=== PATIENT | male | born 1970 | race Hispanic/Latino ===

== ENCOUNTER 2018-02-01 20:55 | Inpatient (IN) | payer MEDICAID, OTHER ==
[~2018-02-01] VITALS: Ht 175.3 cm; Wt 102.6 kg
[2018-02-01] MEDS ORDERED: ONDANSETRON ODT 4 MG TAB ONE (21:14)
[2018-02-01 21:31] LABS: BASOPHILS % (AUTO) 0.7 % (0.0-5.0); EOSINOPHILS % (AUTO) 0.9 % (0.0-8.0); HEMATOCRIT 47.4 % (42-54); LYMPHOCYTES % (AUTO) 11.5 % (21.0-51.0); MEAN CORPUSCULAR HEMOGLOBIN 27.4 pg (27.0-33.0); MEAN CORPUSCULAR HGB CONC 33.2 g/dL (32.0-36.0); MEAN CORPUSCULAR VOLUME 82.4 fL (79-99); NEUTROPHILS % (AUTO) 78.9 % (40.0-77.0); PLATELET COUNT (AUTO) 286 K/uL (130-400); RED BLOOD CELL COUNT(AUTO) 5.75 MIL/uL (4.50-6.20); RED CELL DISTRIBUTION WIDTH 13.8 % (11.0-15.5); WHITE BLOOD COUNT (AUTO) 13.5 K/uL (4.8-10.8)
[2018-02-01 21:41] LABS: CREATININE 0.7 mg/dL (0.5-1.5); POTASSIUM 3.7 mmol/L (3.5-5.1)
[2018-02-01 21:46] LABS: ALBUMIN 3.3 g/dL (3.5-5.0); BILIRUBIN,DIRECT 0.1 mg/dL (0.0-0.3); BILIRUBIN,TOTAL 0.5 mg/dL (0.2-1.0); TOTAL PROTEIN, SERUM 7.6 g/dL (6.0-8.3)
[2018-02-01] MEDS ORDERED: SODIUM CHLORIDE 0.9% 1000ML 1,000 ML IV ONE (22:26)
[2018-02-01] MEDS ORDERED: VANCOMYCIN 1GM+NS 250ML 250 ML IV ONE (22:26)
[2018-02-01] MEDS ORDERED: KETOROLAC TROMETHAMINE 30MG/ML ONE (22:27)
[2018-02-01] MEDS ORDERED: COMPOUND IV REFRIGERATED 1 EACH IVSOLN MISC PRN (23:15)
[2018-02-02] MEDS ORDERED: ZOSYN 3.375GM+NS 50ML 50 ML IV ONE (01:26)
[2018-02-02 02:15] VITALS: BP 145/72
[2018-02-02] MEDS: SODIUM CHLORIDE 0.9% 1000ML 1,000 ML IV SCH ×2 (02:38→20:50)
[2018-02-02] MEDS: MORPHINE SULFATE 4 MG/1ML SYG IVP PRN ×3 (02:39→20:51)
[2018-02-02 03:40] LABS: MEAN CORPUSCULAR HGB CONC 34.1 g/dL (32.0-36.0); MEAN CORPUSCULAR VOLUME 82.3 fL (79-99); PLATELET COUNT (AUTO) 235 K/uL (130-400); RED CELL DISTRIBUTION WIDTH 13.9 % (11.0-15.5); WHITE BLOOD COUNT (AUTO) 11.8 K/uL (4.8-10.8)
[2018-02-02 03:53] LABS: ALBUMIN 2.6 g/dL (3.5-5.0); BILIRUBIN,TOTAL 0.6 mg/dL (0.2-1.0); CREATININE 0.6 mg/dL (0.5-1.5); POTASSIUM 3.5 mmol/L (3.5-5.1); TOTAL PROTEIN, SERUM 6.2 g/dL (6.0-8.3)
[2018-02-02] MEDS ORDERED: DEXTROSE 50%-WATER 50 ML DISP.SYRIN IV PRN ×2 (06:15)
[2018-02-02] MEDS ORDERED: GLUCAGON 1MG KIT 1 MG ML IM PRN ×2 (06:15)
[2018-02-02] MEDS: KETOROLAC TROMETHAMINE 30MG/ML IV PRN ×3 (07:02→23:48)
[2018-02-02 08:00] VITALS: BP 168/93
[2018-02-02] MEDS: INSULIN HUMULIN R 100 UNIT/ML 3ML SQ SCH ×3 (08:26→17:08)
[2018-02-02] MEDS: ZOSYN 3.375GM+NS 50ML 50 ML IV SCH ×4 (09:08→23:47)
[2018-02-02] MEDS: VANCOMYCIN 1.5 GM in SODIUM CHLORIDE 0.9% 250 ML IV SCH ×2 (09:09→20:57)
[2018-02-02 10:41] VITALS: BP 125/74
[2018-02-02 12:00] VITALS: BP 125/74
[2018-02-02 16:00] VITALS: BP 139/75
[2018-02-02 19:00] VITALS: BP 171/97
[2018-02-02 21:18] LABS: APPEARANCE,URINE Clear (CLEAR); BILIRUBIN,URINE Negative (NEGATIVE); COLOR,URINE Yellow (YELLOW); GLUCOSE, URINE (UA) >=1000 mg/dL (NEGATIVE); KETONES,URINE 15 mg/dL (NEGATIVE); LEUKOCYTE ESTERASE ,URINE Negative (NEGATIVE); NITRATE,URINE Negative (NEGATIVE); OCCULT BLOOD,URINE Negative (NEGATIVE); PH,URINE 5.5 (5.0-8.0); PROTEIN,URINE POS 2+ (NEGATIVE)
[2018-02-02 21:27] LABS: BACTERIA,URINE None Seen /HPF (None Seen); MUCUS,URINE Few LPF (None Seen); RBC,URINE None Seen /HPF (0-1); WBC,URINE None Seen /HPF (0-1)
[2018-02-03] VITALS (20 sets, daily range): BP systolic 130–187; BP diastolic 57–108
[2018-02-03] MEDS: INSULIN HUMULIN R 100 UNIT/ML 3ML SQ SCH ×5 (01:42→21:21)
[2018-02-03] MEDS: MORPHINE SULFATE 4 MG/1ML SYG IVP PRN ×2 (06:34→11:33)
[2018-02-03] MEDS: ZOSYN 3.375GM+NS 50ML 50 ML IV SCH ×2 (08:00→12:49)
[2018-02-03] MEDS ORDERED: VANCOMYCIN 2 GM in SODIUM CHLORIDE 0.9% 500ML 500 ML IV SCH (10:45)
[2018-02-03] MEDS: KETOROLAC TROMETHAMINE 30MG/ML IV PRN (11:39)
[2018-02-03] MEDS ORDERED: FENTANYL CITRATE PF 50 MCG/1 ML 2ML VIAL ONE ×2 (16:12→17:20)
[2018-02-03] MEDS ORDERED: MIDAZOLAM HCL 1 MG/ML 2ML VIAL ONE (16:12)
[2018-02-03] MEDS ORDERED: PROPOFOL 10 MG/ML 20ML VIAL IV ONE (16:12)
[2018-02-03] MEDS ORDERED: KETAMINE HCL 100 MG/ML 5ML VIAL IJ ONE (16:26)
[2018-02-03] MEDS ORDERED: HYDRALAZINE HCL 20 MG/ML VIAL ONE (17:01)
[2018-02-03] MEDS: SODIUM CHLORIDE 0.9% 1000ML 1,000 ML IV SCH ×2 (17:29→18:56)
[2018-02-03] MEDS ORDERED: MEPERIDINE-PF 50 MG/ML SYG ONE (17:31)
[2018-02-03] MEDS: VANCOMYCIN 1.5 GM in SODIUM CHLORIDE 0.9% 250 ML IV SCH (21:12)
[2018-02-03] MEDS: ACETAMINOPHEN-CODEINE 300/30MG TAB PO PRN (21:12)
[2018-02-04] VITALS (7 sets, daily range): BP systolic 135–186; BP diastolic 67–92
[2018-02-04] MEDS: ZOSYN 3.375GM+NS 50ML 50 ML IV SCH ×4 (00:01→23:13)
[2018-02-04] MEDS: VANCOMYCIN 1.5 GM in SODIUM CHLORIDE 0.9% 250 ML IV SCH ×3 (05:48→21:21)
[2018-02-04] MEDS: INSULIN HUMULIN R 100 UNIT/ML 3ML SQ SCH ×4 (07:30→20:47)
[2018-02-04] MEDS: MORPHINE SULFATE 4 MG/1ML SYG IVP PRN ×3 (09:11→19:50)
[2018-02-04] MEDS: ACETAMINOPHEN-CODEINE 300/30MG TAB PO PRN ×3 (11:35→23:13)
[2018-02-04] MEDS: SODIUM CHLORIDE 0.9% 1000ML 1,000 ML IV SCH (18:09)
[2018-02-04] MEDS ORDERED: LISI10TA7 PO (20:55)
[2018-02-04] MEDS ORDERED: METF-527 PO (20:55)
[2018-02-04] MEDS ORDERED: levimer SQ (20:55)
[2018-02-04] MEDS ORDERED: HYDRALAZINE HCL 20 MG/ML VIAL ONE (22:00)
[2018-02-05] VITALS (8 sets, daily range): BP systolic 140–175; BP diastolic 65–95
[2018-02-05] MEDS: MORPHINE SULFATE 4 MG/1ML SYG IVP PRN ×4 (01:44→23:30)
[2018-02-05] MEDS: SODIUM CHLORIDE 0.9% 1000ML 1,000 ML IV SCH ×2 (05:39→20:35)
[2018-02-05] MEDS: VANCOMYCIN 1.5 GM in SODIUM CHLORIDE 0.9% 250 ML IV SCH ×2 (05:39→13:43)
[2018-02-05] MEDS: INSULIN HUMULIN R 100 UNIT/ML 3ML SQ SCH ×4 (06:01→20:08)
[2018-02-05] MEDS: LISINOPRIL 10 MG TABLET PO SCH (10:22)
[2018-02-05] MEDS: METFORMIN HCL 500 MG TAB.SR.24H PO SCH ×2 (10:22→17:44)
[2018-02-05] MEDS: ZOSYN 3.375GM+NS 50ML 50 ML IV SCH (10:23)
[2018-02-05] MEDS: ACETAMINOPHEN-CODEINE 300/30MG TAB PO PRN (13:42)
[2018-02-05] MEDS: HYDRALAZINE HCL 20 MG/ML VIAL IV PRN (20:06)
[2018-02-05] MEDS ORDERED: INSULIN GLARGINE 100 UNITS/ML 10 ML VIAL SQ SCH (21:00)
[2018-02-05] MEDS: VANCOMYCIN 1.75 GM in SODIUM CHLORIDE 0.9% 250 ML IV SCH (22:50)
[2018-02-06 03:00] VITALS: BP 152/76
[2018-02-06] MEDS: SODIUM CHLORIDE 0.9% 1000ML 1,000 ML IV SCH ×2 (04:53→09:55)
[2018-02-06] MEDS: VANCOMYCIN 1.75 GM in SODIUM CHLORIDE 0.9% 250 ML IV SCH ×2 (04:55→16:17)
[2018-02-06] MEDS: INSULIN HUMULIN R 100 UNIT/ML 3ML SQ SCH ×2 (06:07→12:04)
[2018-02-06 08:00] VITALS: BP 160/96
[2018-02-06] MEDS: LISINOPRIL 10 MG TABLET PO SCH (10:12)
[2018-02-06] MEDS: METFORMIN HCL 500 MG TAB.SR.24H PO SCH ×2 (10:12→16:17)
[2018-02-06] MEDS: MORPHINE SULFATE 4 MG/1ML SYG IVP PRN ×2 (10:13→16:15)
[2018-02-06] MEDS: ACETAMINOPHEN-CODEINE 300/30MG TAB PO PRN (10:13)
[2018-02-06] MEDS: HYDRALAZINE HCL 20 MG/ML VIAL IV PRN (10:15)
[2018-02-06 12:00] VITALS: BP 172/93
== END 2018-02-06 18:20 | disposition home or self-care (01) | DRG 603 ==
LOC: EDH 20:55 → OBSVTOIN 20:56 → EDHIP 20:56 → 3AH 02-02 01:15
PROVIDERS: ADMIT Internal Medicine Nephrology; ATTEND Internal Medicine Nephrology
PROC: 0X9K0ZZ Drainage of Left Hand, Open Approach (ICD-10-PCS; principal; 2018-02-03 16:35)
DX: L03.114 Cellulitis of left upper limb (principal); M32.9 Systemic lupus erythematosus, unspecified; L02.512 Cutaneous abscess of left hand; E11.9 Type 2 diabetes mellitus without complications; E66.9 Obesity, unspecified; E78.5 Hyperlipidemia, unspecified; B95.8 Unspecified staphylococcus as the cause of diseases classified elsewhere; I10 Essential (primary) hypertension; Z83.3 Family history of diabetes mellitus; Z82.49 Family history of ischemic heart disease and other diseases of the circulatory system; Z80.9 Family history of malignant neoplasm, unspecified
CPT/HCPCS: 36415; 73130; 73220; 76882; 80048; 80053; 80076; 80202; 81001; 82948; 85025; 85027; 85651; 86141; 87070; 87076; 87077; 87186; 87205; A6266; J0360; J1815; J1885; J2175; J2250; J2270; J2543; J2704; J3010; J3370; J3490; J7030; J7040

== ENCOUNTER 2019-01-25 08:29 | Emergency (ER) | payer OTHER ==
[~2019-01-25 08:29] MED LIST: LISI10TA7 PO; METF-527 PO; levimer SQ
[2019-01-25] MEDS ORDERED: SULFAMETHOX-TMP DS 800/160 TAB ONE (09:30)
[2019-01-25] MEDS ORDERED: CEPHALEXIN 500 MG CAPSULE ONE (09:30)
[2019-01-25] MEDS ORDERED: HYDROCODONE/ACETAMINOPHEN 10/325 MG TAB ONE (09:31)
== END 2019-01-25 09:59 | disposition home or self-care (01) ==
LOC: EDH 08:29
DX: L03.317 Cellulitis of buttock (principal); E11.9 Type 2 diabetes mellitus without complications; I10 Essential (primary) hypertension; L93.0 Discoid lupus erythematosus; Z79.4 Long term (current) use of insulin; Z90.49 Acquired absence of other specified parts of digestive tract

== ENCOUNTER 2019-01-27 08:43 | Inpatient (IN) | payer SELFPAY ==
[~2019-01-27] VITALS: Ht 175.3 cm; Wt 88.3 kg
[2019-01-27] MEDS ORDERED: ONDANSETRON HCL 4 MG/2 ML VIAL ONE (09:19)
[2019-01-27] MEDS ORDERED: MORPHINE SULFATE 4 MG/1ML SYG ONE ×2 (09:20→12:05)
[2019-01-27 09:24] LABS: BASOPHILS % (AUTO) 0.8 % (0.0-5.0); EOSINOPHILS % (AUTO) 2.3 % (0.0-8.0); HEMATOCRIT 41.1 % (42-54); MEAN CORPUSCULAR HEMOGLOBIN 27.9 pg (27.0-33.0); MEAN CORPUSCULAR HGB CONC 33.8 g/dL (32.0-36.0); MEAN CORPUSCULAR VOLUME 82.5 fL (79-99); MONOCYTES % (AUTO) 7.5 % (3.0-13.0); NEUTROPHILS % (AUTO) 77.4 % (40.0-77.0); PLATELET COUNT (AUTO) 266 K/uL (130-400); RED BLOOD CELL COUNT(AUTO) 4.99 MIL/uL (4.50-6.20); RED CELL DISTRIBUTION WIDTH 13.2 % (11.0-15.5); WHITE BLOOD COUNT (AUTO) 11.7 K/uL (4.8-10.8)
[2019-01-27 09:37] LABS: ALBUMIN 2.3 g/dL (3.5-5.0); BILIRUBIN,TOTAL 0.4 mg/dL (0.2-1.0); CREATININE 0.7 mg/dL (0.5-1.5); POTASSIUM 3.7 mmol/L (3.5-5.1); TOTAL PROTEIN, SERUM 6.5 g/dL (6.0-8.3)
[2019-01-27] MEDS ORDERED: CLINDAMYCIN 600 MG/D5% WATER 50 ML IV ONE (10:49)
[2019-01-27] MEDS ORDERED: INSULIN HUMULIN R 100 UNIT/ML 3ML ONE (11:56)
[2019-01-27 12:24] LABS: APPEARANCE,URINE CLEAR (CLEAR); BILIRUBIN,URINE NEGATIVE (NEGATIVE); COLOR,URINE YELLOW (YELLOW); GLUCOSE, URINE (UA) >=1000 mg/dL (NEGATIVE); KETONES,URINE >=80 mg/dL (NEGATIVE); LEUKOCYTE ESTERASE ,URINE NEGATIVE (NEGATIVE); NITRATE,URINE NEGATIVE (NEGATIVE); OCCULT BLOOD,URINE NEGATIVE (NEGATIVE); PROTEIN,URINE 30 mg/dL (NEGATIVE); UROBILINOGEN,URINE 0.2 mg/dL (0.2-1.0)
[2019-01-27 12:34] LABS: BACTERIA,URINE Rare /HPF (None Seen); RBC,URINE None Seen /HPF (0-1); SQUAMOUS EPITHELIAL CELL,UR Rare /HPF (0-2); WBC,URINE None Seen /HPF (0-1)
[2019-01-27] MEDS ORDERED: INSULIN GLARGINE 100 UNITS/ML 10 ML VIAL SQ ONE (12:45)
[2019-01-27] MEDS ORDERED: ACETAMINOPHEN 325 MG TAB PO PRN ×2 (12:45)
[2019-01-27] MEDS ORDERED: ZOSYN 3.375GM+NS 50ML 50 ML IV SCH (12:45)
[2019-01-27] MEDS ORDERED: HYDROCODONE/ACETAMINOPHEN 5/325 MG TAB PO PRN (12:45)
[2019-01-27] MEDS: CLINDAMYCIN 600 MG/D5% WATER 50 ML IV SCH ×2 (12:45→20:25)
[2019-01-27] MEDS ORDERED: ONDANSETRON HCL 4 MG/2 ML VIAL IV PRN (12:45)
[2019-01-27] MEDS ORDERED: HYDRALAZINE HCL 20 MG/ML VIAL IV PRN (12:45)
[2019-01-27 14:05] VITALS: BP 133/67
[2019-01-27 16:00] VITALS: BP 141/77
[2019-01-27] MEDS ORDERED: DEXTROSE 50%-WATER 50 ML DISP.SYRIN IV PRN (16:15)
[2019-01-27] MEDS ORDERED: GLUCAGON 1MG KIT 1 MG ML IM PRN (16:15)
[2019-01-27] MEDS: INSULIN HUMULIN R 100 UNIT/ML 3ML SQ SCH ×2 (16:26→20:25)
--- NOTE | 2019-01-27 19:38 | NUR ---
ADDENDUM TO SKIN ASSESSMENT/CELLULITIS CARE CIRCUMSCRIBED ERYTHEMA,LEFT INNER BUTTOCKS WITH MARKED SWELLING AND INDURATION, APPROX. 8X5 SIZE, TENDER TO TOUCH, NO OPEN WOUND NOTED. WARM COMPRESS TO AREA,EXPLAINED RATIONALE TO PT ,VERBALIZES FULL UNDERSTANDING Addendum: 01/28/19 at 0143 by MILENA ACOSTA RN RN Amended: Links added.
[2019-01-27 19:53] VITALS: BP 129/68
[2019-01-27] MEDS: INSULIN GLARGINE 100 UNITS/ML 10 ML VIAL SQ SCH (20:24)
[2019-01-27] MEDS: FAMOTIDINE/PF 20 MG/2 ML VIAL IV SCH (20:25)
[2019-01-27] MEDS: MORPHINE SULFATE 2 MG/ML 1ML SYG IVP PRN (22:04)
[2019-01-27 23:45] VITALS: BP 142/84
[2019-01-28] MEDS: MORPHINE SULFATE 2 MG/ML 1ML SYG IVP PRN ×5 (01:18→23:30)
[2019-01-28 03:58] VITALS: BP 143/73
[2019-01-28] MEDS: CLINDAMYCIN 600 MG/D5% WATER 50 ML IV SCH ×3 (04:38→22:17)
[2019-01-28 05:35] LABS: HEMATOCRIT 39.5 % (42-54); MEAN CORPUSCULAR HEMOGLOBIN 27.2 pg (27.0-33.0); MEAN CORPUSCULAR HGB CONC 32.8 g/dL (32.0-36.0); MEAN CORPUSCULAR VOLUME 82.9 fL (79-99); PLATELET COUNT (AUTO) 300 K/uL (130-400); RED BLOOD CELL COUNT(AUTO) 4.77 MIL/uL (4.50-6.20); RED CELL DISTRIBUTION WIDTH 13.1 % (11.0-15.5)
[2019-01-28 05:45] LABS: BAND NEUTROPHILS % (MANUAL) 3 % (0-2); BASOPHILS % (MANUAL) 1 % (0-2); LYMPHOCYTES % (MANUAL) 16 % (22-44); MAN.DIFF COMMENT-IMPRESSION MANUAL DIFFERENTIAL; MONOCYTES % (MANUAL) 9 % (2-9); PLATELET MORPHOLOGY COMMENT ADEQUATE; SEGMENTED NEUTROPHILS % 71 % (40-70)
[2019-01-28 05:50] LABS: CREATININE 0.8 mg/dL (0.5-1.5)
[2019-01-28] MEDS: INSULIN HUMULIN R 100 UNIT/ML 3ML SQ SCH (06:02)
[2019-01-28] MEDS: INSULIN GLARGINE 100 UNITS/ML 10 ML VIAL SQ SCH ×2 (06:03→23:06)
[2019-01-28 07:30] VITALS: BP 136/70
[2019-01-28] MEDS ORDERED: VANCOMYCIN 1GM+NS 250ML 250 ML IV SCH (07:45)
[2019-01-28] MEDS ORDERED: VANCOMYCIN PROTOCOL PER PHARMACY IV PRN (07:45)
[2019-01-28] MEDS ORDERED: VANCOMYCIN PROTOCOL PER PHARMACY IV SCH (07:45)
[2019-01-28] MEDS ORDERED: COMPOUND IV REFRIGERATED 1 EACH IVSOLN MISC PRN (07:45)
[2019-01-28] MEDS: ENOXAPARIN SODIUM 30 MG/0.3 ML SQ SCH (08:51)
[2019-01-28] MEDS: FAMOTIDINE/PF 20 MG/2 ML VIAL IV SCH ×2 (08:51→22:18)
[2019-01-28] MEDS: VANCOMYCIN 1.25 GM in SODIUM CHLORIDE 0.9% 250 ML IV SCH ×2 (09:43→22:17)
[2019-01-28 11:00] VITALS: BP 118/56
[2019-01-28] MEDS: INSULIN LISPRO 100 UNIT/ML 3ML SQ SCH ×5 (12:09→23:06)
--- NOTE | 2019-01-28 14:32 | NUR ---
DCP CM met with pt discussed dc plans. Pt is independent, lives at home with spouse. Denies any equipments/services. Pt feels safe to go back home, still drives, spouse able to assist with transportation and needs as necessary. Pt is a selfpay, states usually goes to [facility] for pcp follow up, given [facility], [facility] assisting. DC plan to home once stable. CM to cont to follow up. Addendum: 01/28/19 at 1434 by JONI BROWNLEE LVN CM Amended: Links added.
--- NOTE | 2019-01-28 15:00 | NUR ---
As per Dr. Irvin I&D scheduled for tomorrow 01/29/19.Pt aware
[2019-01-28 15:30] VITALS: BP 134/54
[2019-01-28 19:57] VITALS: BP 155/90
[2019-01-28 23:53] VITALS: BP 158/95
[2019-01-29] VITALS (23 sets, daily range): BP systolic 102–162; BP diastolic 60–97
[2019-01-29 05:16] LABS: BASOPHILS % (AUTO) 0.5 % (0.0-5.0); EOSINOPHILS % (AUTO) 4.8 % (0.0-8.0); HEMATOCRIT 37.5 % (42-54); LYMPHOCYTES % (AUTO) 25.1 % (21.0-51.0); MEAN CORPUSCULAR HEMOGLOBIN 28.7 pg (27.0-33.0); MEAN CORPUSCULAR HGB CONC 34.5 g/dL (32.0-36.0); MEAN CORPUSCULAR VOLUME 83.2 fL (79-99); MONOCYTES % (AUTO) 9.6 % (3.0-13.0); PLATELET COUNT (AUTO) 272 K/uL (130-400); RED CELL DISTRIBUTION WIDTH 13.1 % (11.0-15.5); WHITE BLOOD COUNT (AUTO) 8.9 K/uL (4.8-10.8)
[2019-01-29 05:23] LABS: ALBUMIN 1.9 g/dL (3.5-5.0); CREATININE 0.6 mg/dL (0.5-1.5); CRP QUANTITATIVE 69.1 mg/L (0.00-9.0); MAGNESIUM 2.1 mg/dL (1.80-2.40); PHOSPHORUS 3.6 mg/dL (2.5-4.9); POTASSIUM 3.6 mmol/L (3.5-5.1)
[2019-01-29] MEDS: CLINDAMYCIN 600 MG/D5% WATER 50 ML IV SCH ×3 (05:41→21:13)
[2019-01-29] MEDS: MORPHINE SULFATE 2 MG/ML 1ML SYG IVP PRN ×4 (06:08→21:13)
[2019-01-29] MEDS: INSULIN LISPRO 100 UNIT/ML 3ML SQ SCH ×7 (06:09→22:05)
[2019-01-29 06:18] LABS: ERYTHROCYTE SEDIMENTATION RATE 65 MM/HR (0-15)
[2019-01-29] MEDS: ENOXAPARIN SODIUM 30 MG/0.3 ML SQ SCH (09:00)
[2019-01-29] MEDS: VANCOMYCIN 1.25 GM in SODIUM CHLORIDE 0.9% 250 ML IV SCH (09:27)
[2019-01-29] MEDS: FAMOTIDINE/PF 20 MG/2 ML VIAL IV SCH ×2 (09:28→21:13)
--- NOTE | 2019-01-29 09:33 | NUR ---
PT TAKEN TO OR FOR I&D TO LEFT BUTTOCK IN STABLE CONDITION
[2019-01-29] MEDS ORDERED: SODIUM CHLORIDE 0.9% 1000ML 1,000 ML IV ONE (09:35)
[2019-01-29] MEDS ORDERED: ONDANSETRON HCL 4 MG/2 ML VIAL ONE (10:46)
[2019-01-29] MEDS ORDERED: MIDAZOLAM HCL 1 MG/ML 2ML VIAL ONE (10:46)
[2019-01-29] MEDS ORDERED: FENTANYL CITRATE PF 50 MCG/1 ML 2ML VIAL ONE (10:46)
[2019-01-29] MEDS ORDERED: LIDOCAINE PF 2% 5ML ABBOJECT ONE (10:46)
[2019-01-29] MEDS ORDERED: PROPOFOL 10 MG/ML 20ML VIAL IV ONE (10:46)
[2019-01-29] MEDS ORDERED: DEXAMETHASONE SOD PHOSPHATE 10MG/ML 1ML VIAL ONE (10:46)
[2019-01-29] MEDS ORDERED: ROCURONIUM 10MG/1ML SYR 10 MG/ML ML ONE (11:17)
[2019-01-29] MEDS ORDERED: BACITRACIN 50,000 UNIT VIAL ONE (11:28)
[2019-01-29] MEDS ORDERED: GLYCOPYRROLATE 1 MG/5 ML SYRINGE ONE (11:33)
[2019-01-29] MEDS ORDERED: NEOSTIGMINE 5MG/5ML SYR IV ONE (11:34)
[2019-01-29] MEDS ORDERED: MEPERIDINE-PF 25 MG/ML SYG ONE (11:56)
--- NOTE | 2019-01-29 13:00 | NUR ---
Pt. returned from OR s/p I&D to left buttock. Patient alert and awake in stable condition. IV patent to left wrist. bed to lowest position. call light placed within reach. patient has minimal pain to left buttock. in no distress. continue to monitor pt s/p I&D.
--- NOTE | 2019-01-29 19:14 | NUR ---
INSTRUCTED PATIENT ON HAVING BS UNDER CONTROL FOR WOUND HEALING. Addendum: 01/29/19 at 1915 by KURTIS LANDEROS RN RN Amended: Links added.
[2019-01-29] MEDS: VANCOMYCIN 1.5 GM in SODIUM CHLORIDE 0.9% 250 ML IV SCH (22:04)
[2019-01-29] MEDS: INSULIN GLARGINE 100 UNITS/ML 10 ML VIAL SQ SCH (22:06)
[2019-01-30] MEDS: MORPHINE SULFATE 2 MG/ML 1ML SYG IVP PRN ×2 (03:55→20:58)
[2019-01-30 03:59] VITALS: BP 133/74
[2019-01-30 05:34] LABS: HEMATOCRIT 39.7 % (42-54); MEAN CORPUSCULAR HEMOGLOBIN 27.1 pg (27.0-33.0); MEAN CORPUSCULAR HGB CONC 32.7 g/dL (32.0-36.0); MEAN CORPUSCULAR VOLUME 82.8 fL (79-99); PLATELET COUNT (AUTO) 319 K/uL (130-400); RED BLOOD CELL COUNT(AUTO) 4.79 MIL/uL (4.50-6.20); RED CELL DISTRIBUTION WIDTH 13.3 % (11.0-15.5)
[2019-01-30 05:45] LABS: CREATININE 0.8 mg/dL (0.5-1.5)
[2019-01-30] MEDS: CLINDAMYCIN 600 MG/D5% WATER 50 ML IV SCH ×3 (06:25→20:47)
[2019-01-30] MEDS: INSULIN LISPRO 100 UNIT/ML 3ML SQ SCH ×7 (06:34→20:43)
[2019-01-30 08:07] VITALS: BP 119/72
[2019-01-30] MEDS: OXYCODONE/ACETAMIN 5/325MG TAB PO PRN ×3 (08:23→18:22)
[2019-01-30] MEDS: FAMOTIDINE/PF 20 MG/2 ML VIAL IV SCH ×2 (08:23→20:47)
[2019-01-30] MEDS: ENOXAPARIN SODIUM 30 MG/0.3 ML SQ SCH (08:24)
[2019-01-30] MEDS: VANCOMYCIN 1.5 GM in SODIUM CHLORIDE 0.9% 250 ML IV SCH ×2 (08:39→22:10)
[2019-01-30] MEDS ORDERED: LACTULOSE 20 GM/30 ML UDCUP PO SCH (09:30)
[2019-01-30] MEDS ORDERED: LACTULOSE 20 GM/30 ML UDCUP PO PRN (09:30)
[2019-01-30 11:47] VITALS: BP 129/58
[2019-01-30 16:00] VITALS: BP 156/78
--- NOTE | 2019-01-30 18:56 | NUR ---
WOUND CARE DRESSING CHANGE TO WOUND SITE. CLEANED WOUND WITH NS, PACKED WITH IODOFORM 1 IN, 4X4 GAUZE APPLIED TO SITE. COVERED WITH TEGADERM. PATIENT REPORTED PAIN 2. TOLERATED WELL. WOUND SITE TENDER TO TOUCH, PINK TISSUE AROUND WOUND. WILL CONTINUE TO MONITOR CLOSELY.
[2019-01-30 19:25] VITALS: BP 159/90
[2019-01-30] MEDS ORDERED: INSULIN GLARGINE 100 UNITS/ML 10 ML VIAL SQ SCH (21:00)
[2019-01-30 23:37] VITALS: BP 109/57
[2019-01-31] MEDS: MORPHINE SULFATE 2 MG/ML 1ML SYG IVP PRN ×3 (03:06→14:24)
[2019-01-31 03:57] VITALS: BP 151/80
[2019-01-31] MEDS: CLINDAMYCIN 600 MG/D5% WATER 50 ML IV SCH ×2 (05:17→13:22)
[2019-01-31 06:08] LABS: HEMATOCRIT 39.6 % (42-54); MEAN CORPUSCULAR HEMOGLOBIN 27.9 pg (27.0-33.0); MEAN CORPUSCULAR HGB CONC 33.6 g/dL (32.0-36.0); MEAN CORPUSCULAR VOLUME 82.9 fL (79-99); PLATELET COUNT (AUTO) 296 K/uL (130-400); RED BLOOD CELL COUNT(AUTO) 4.78 MIL/uL (4.50-6.20); RED CELL DISTRIBUTION WIDTH 13.1 % (11.0-15.5); WHITE BLOOD COUNT (AUTO) 6.9 K/uL (4.8-10.8)
[2019-01-31 06:15] LABS: CREATININE 0.7 mg/dL (0.5-1.5); POTASSIUM 3.7 mmol/L (3.5-5.1)
[2019-01-31 06:34] VITALS: BP 137/79
[2019-01-31] MEDS: INSULIN LISPRO 100 UNIT/ML 3ML SQ SCH ×4 (07:20→12:06)
[2019-01-31] MEDS ORDERED: VANCOMYCIN 1.75 GM in SODIUM CHLORIDE 0.9% 250 ML IV SCH (09:35)
[2019-01-31] MEDS: FAMOTIDINE/PF 20 MG/2 ML VIAL IV SCH (09:36)
[2019-01-31] MEDS: ENOXAPARIN SODIUM 30 MG/0.3 ML SQ SCH (09:37)
[2019-01-31] MEDS: OXYCODONE/ACETAMIN 5/325MG TAB PO PRN (10:28)
[2019-01-31 11:48] VITALS: BP 158/94
[2019-01-31] MEDS ORDERED: LISI10TA7 PO (13:57)
[2019-01-31] MEDS ORDERED: INSLAN SQ (13:57)
[2019-01-31] MEDS ORDERED: METF-527 PO (13:59)
[2019-01-31] MEDS ORDERED: METFORMIN HCL 500 MG TAB.SR.24H PO SCH (14:00)
== END 2019-01-31 16:45 | disposition home or self-care (01) | DRG 603 ==
LOC: EDH 08:43 → EDHIP 08:44 → 3DH 14:02 → 3CH 01-31 10:31
PROVIDERS: ADMIT Family Medicine; ATTEND Family Medicine
PROC: 0Y910ZZ Drainage of Left Buttock, Open Approach (ICD-10-PCS; principal; 2019-01-29 11:07)
DX: L03.317 Cellulitis of buttock (principal); E78.5 Hyperlipidemia, unspecified; I10 Essential (primary) hypertension; L02.31 Cutaneous abscess of buttock; M32.9 Systemic lupus erythematosus, unspecified; E11.65 Type 2 diabetes mellitus with hyperglycemia; B95.62 Methicillin resistant Staphylococcus aureus infection as the cause of diseases classified elsewhere; B96.20 Unspecified Escherichia coli [E. coli] as the cause of diseases classified elsewhere; Z80.8 Family history of malignant neoplasm of other organs or systems; Z87.891 Personal history of nicotine dependence; Z88.0 Allergy status to penicillin; Z82.5 Family history of asthma and other chronic lower respiratory diseases; Z82.3 Family history of stroke; Z82.49 Family history of ischemic heart disease and other diseases of the circulatory system; Z83.3 Family history of diabetes mellitus; Z90.49 Acquired absence of other specified parts of digestive tract
CPT/HCPCS: 36415; 71045; 72192; 76857; 80048; 80053; 80202; 81001; 82040; 82948; 83036; 83735; 84100; 85025; 85027; 85651; 86140; 87070; 87076; 87077; 87186; 87205; 93005; A6266; G0378; J1100; J1650; J1815; J2001; J2175; J2250; J2270; J2405; J2704; J2710; J3010; J3370; J3490; J7030

== ENCOUNTER 2021-09-02 00:10 | Emergency (ER) | payer MEDICARE, OTHER ==
[~2021-09-02] VITALS: Ht 175.3 cm; Wt 79.4 kg
[~2021-09-02 00:10] MED LIST changes: +INSLAN SQ; +LISI10TA24 PO; -LISI10TA7 PO; -levimer SQ
[2021-09-02 00:11] VITALS: BP 156/87
[2021-09-02] MEDS ORDERED: ORPHENADRINE CITRATE 30 MG/ML ML IM ONE (01:30)
[2021-09-02] MEDS ORDERED: KETOROLAC 30MG VIAL (30MG/ML) IM ONE (01:30)
[2021-09-02] MEDS ORDERED: KETOROLAC 60 MG VIAL (30MG/ML) ONE (01:50)
[2021-09-02] MEDS ORDERED: ORPHENADRINE CITRATE 30 MG/ML ML ONE (01:50)
[2021-09-02] MEDS ORDERED: LIDOP TP (04:25)
[2021-09-02] MEDS ORDERED: ORPH-43 PO (04:25)
[2021-09-02] MEDS ORDERED: MELO7.5T12 PO (04:25)
[2021-09-02] MEDS ORDERED: HYDROCODONE/ACETAMINOPHEN 5/325 MG TAB PO ONE (04:30)
[2021-09-02] MEDS ORDERED: CYCLOBENZAPRINE HCL 10 MG TABLET PO ONE (04:30)
== END 2021-09-02 04:33 | disposition home or self-care (01) ==
LOC: EDH 00:10
DX: S16.1XXA Strain of muscle, fascia and tendon at neck level, initial encounter (principal); S39.012A Strain of muscle, fascia and tendon of lower back, initial encounter; S80.02XA Contusion of left knee, initial encounter; S80.01XA Contusion of right knee, initial encounter; S90.32XA Contusion of left foot, initial encounter; E78.5 Hyperlipidemia, unspecified; E11.9 Type 2 diabetes mellitus without complications; I10 Essential (primary) hypertension; I25.10 Atherosclerotic heart disease of native coronary artery without angina pectoris; I25.2 Old myocardial infarction; M32.9 Systemic lupus erythematosus, unspecified; Z88.0 Allergy status to penicillin; Z79.4 Long term (current) use of insulin; Z79.1 Long term (current) use of non-steroidal anti-inflammatories (NSAID); Z79.01 Long term (current) use of anticoagulants; Z79.82 Long term (current) use of aspirin; Z79.899 Other long term (current) drug therapy; Z98.1 Arthrodesis status; V49.49XA Driver injured in collision with other motor vehicles in traffic accident, initial encounter; Y93.89 Activity, other specified; Y92.89 Other specified places as the place of occurrence of the external cause; Y99.8 Other external cause status
CPT/HCPCS: 70450; 71250; 72125; 73562; 73630; 74176; 96372 ×2; 99284; J1885; J2360

== ENCOUNTER 2022-05-03 05:52 | Day surgery (SDC) | payer OTHER ==
[2022-04-28 14:48] LABS: BASOPHILS % (AUTO) 0.4 % (0.0-5.0); EOSINOPHILS % (AUTO) 1.8 % (0.0-8.0); LYMPHOCYTES % (AUTO) 12.2 % (21.0-51.0); MEAN CORPUSCULAR HEMOGLOBIN 28.8 pg (27.0-33.0); MEAN CORPUSCULAR VOLUME 84.7 fL (79-99); MONOCYTES % (AUTO) 11.6 % (3.0-13.0); NEUTROPHILS % (AUTO) 73.6 % (40.0-77.0); PLATELET COUNT (AUTO) 218 K/uL (130-400); RED BLOOD CELL COUNT(AUTO) 4.13 MIL/uL (4.50-6.20); RED CELL DISTRIBUTION WIDTH 12.9 % (11.0-15.5); WHITE BLOOD COUNT (AUTO) 6.7 K/uL (4.8-10.8)
[2022-04-28 14:55] LABS: CREATININE 1.6 mg/dL (0.5-1.5); POTASSIUM 4.5 mmol/L (3.5-5.1)
[2022-04-28 14:58] LABS: INR 0.93 (0.85-1.15); PROTHROMBIN TIME 10.1 SEC (9.6-11.6)
[2022-04-28 14:59] LABS: PARTIAL THROMBOPLASTIN TIME 27.5 SEC (26.3-35.5)
[2022-04-28 14:59] LABS: APPEARANCE,URINE CLEAR (CLEAR); BILIRUBIN,URINE NEGATIVE (NEGATIVE); COLOR,URINE YELLOW (YELLOW); GLUCOSE, URINE (UA) >=1000 mg/dL (NEGATIVE); KETONES,URINE NEGATIVE (NEGATIVE); LEUKOCYTE ESTERASE ,URINE NEGATIVE (NEGATIVE); NITRATE,URINE NEGATIVE (NEGATIVE); OCCULT BLOOD,URINE MODERATE (NEGATIVE); PROTEIN,URINE 100 mg/dL (NEGATIVE); UROBILINOGEN,URINE 0.2 mg/dL (0.2-1.0)
[2022-04-28 15:12] LABS: B-TYPE NATRIURETIC PEPTIDE 88 pg/mL (0-100)
[2022-04-28 15:34] LABS: WBC,URINE 0-1 /HPF (0-1)
[2022-04-28 15:35] LABS: BACTERIA,URINE Few /HPF (None Seen); SQUAMOUS EPITHELIAL CELL,UR Few /HPF (0-2)
[~2022-05-03] VITALS: Ht 175.3 cm; Wt 111.5 kg
[2022-05-03] VITALS (7 sets, daily range): BP systolic 114–181; BP diastolic 57–93
[~2022-05-03 05:52] MED LIST changes: +AEC81 PO; +ATOR40TA69 PO; +CLOP75TA32 PO; +FURO20TA4 PO; -INSLAN SQ; +INSU100V12 SQ; +ISOS60TA77 PO; -LISI10TA24 PO; +LISI40TA9 PO; +LISPRO SQ; +METF-446 PO; -METF-527 PO; +METO1TAB13 PO; +SPIR25TA6 PO
[2022-05-03] MEDS ORDERED: 0.9% NACL 500ML IV.SOLN 500 ML IV SCH (06:00)
[2022-05-03] MEDS ORDERED: HEPARIN 10,000 UNIT/10ML (1,000 UNIT/ML) VIAL ONE (07:12)
[2022-05-03] MEDS ORDERED: BIVALIRUDIN 250 MG/VIAL IV ONE (07:12)
[2022-05-03] MEDS ORDERED: NITROGLYCERIN 50MG VIAL ONE (07:12)
[2022-05-03] MEDS ORDERED: LIDOCAINE HCL 400MG/20ML VIAL ONE (07:13)
[2022-05-03] MEDS ORDERED: MIDAZOLAM HCL 1 MG/ML 2ML VIAL ONE (07:13)
[2022-05-03] MEDS ORDERED: FENTANYL CITRATE PF 50 MCG/1 ML 2ML VIAL ONE (07:13)
[2022-05-03] MEDS ORDERED: NICARDIPINE 25MG INJ IV ONE (07:24)
[2022-05-03] MEDS ORDERED: IOHEXOL-350 50ML VIAL IV ONE (07:25)
[2022-05-03] MEDS ORDERED: IOHEXOL 350 MG/ML 100ML INFUS..BTL IV ONE (07:25)
[2022-05-03] MEDS ORDERED: MORPHINE 4 MG SYG ONE ×2 (08:23→08:48)
[2022-05-03] MEDS ORDERED: 0.9%NACL 1000ML 1,000 ML IV SCH (09:00)
[2022-05-03] MEDS ORDERED: ACETAMINOPHEN WITH CODEINE 1 TAB TAB PO PRN (09:00)
[2022-05-03] MEDS ORDERED: HYDRALAZINE 20MG/ML VIAL ONE (09:06)
[2022-05-03] MEDS ORDERED: ONDANSETRON 4MG INJ ONE (09:45)
[2022-05-03] MEDS ORDERED: ONDANSETRON 4MG INJ IVP SCH (10:30)
[2022-05-03] MEDS ORDERED: ISOS60TA77 PO ×2 (10:33→10:34)
[2022-05-03] MEDS ORDERED: AMLO-257 PO (10:36)
== END 2022-05-03 13:35 | disposition home or self-care (01) ==
LOC: DAH 05:52
PROVIDERS: ATTEND Internal Medicine
DX: I25.10 Atherosclerotic heart disease of native coronary artery without angina pectoris (principal); I10 Essential (primary) hypertension; E11.9 Type 2 diabetes mellitus without complications; E78.5 Hyperlipidemia, unspecified; I25.2 Old myocardial infarction; M19.90 Unspecified osteoarthritis, unspecified site; Z95.5 Presence of coronary angioplasty implant and graft; Z79.01 Long term (current) use of anticoagulants; Z79.4 Long term (current) use of insulin; Z79.82 Long term (current) use of aspirin; Z98.890 Other specified postprocedural states
CPT/HCPCS: 80048; 83880; 85025; 85610; 85730; 87426; 81001; 36415; 71045; 93005; 93458; 93571; 82948; C1769 ×2; C1894; C1887; Q9965 ×2; J3010; J3490 ×3; J0360; J1644 ×2; J2250; J2405; J2270 ×2; Q9967; A4215; A4222; A4221; A4663; A4216; A4606; A4223 ×3; 99156; 99157; J0583